=== PATIENT | female | born 1980 | race Two or more races ===

== ENCOUNTER 2022-07-01 10:31 | Emergency (ER) | payer MEDICAID ==
[2022-07-01 11:01] VITALS: BP 121/88; PULSE 81
== END 2022-07-01 11:00 | disposition home or self-care (01) ==
LOC: MW.ED 10:31
DX: T74.11XA Adult physical abuse, confirmed, initial encounter (principal); Z88.4 Allergy status to anesthetic agent
CPT/HCPCS: 99283

== ENCOUNTER 2022-07-04 13:48 | Emergency (ER) | payer MEDICAID ==
[2022-07-04 14:56] LABS: CARBON DIOXIDE,CO2 27.5 mmol/L (21.0-32.0); POTASSIUM,K 3.2 mmol/L (3.5-5.1)
[2022-07-04 16:15] VITALS: BP 125/92; PULSE 74
== END 2022-07-04 16:40 | disposition home or self-care (01) ==
LOC: MW.ED 13:48
DX: M62.838 Other muscle spasm (principal); K04.7 Periapical abscess without sinus; Z88.4 Allergy status to anesthetic agent
CPT/HCPCS: 36415; 70450; 70450-26; 70486; 70486-26; 72125; 72125-26; 80053; 81003; 84703; 85025; 99284